=== PATIENT | female | born 1970 | race Caucasian/White ===

== ENCOUNTER 2018-11-26 08:29 | Emergency (ER) | payer MEDICAID ==
[~2018-11-26] VITALS: Ht 157.5 cm; Wt 96.6 kg
[2018-11-26 08:37] VITALS: Ht 157.5 cm; Wt 96.6 kg
[2018-11-26 11:11] VITALS: BP 139/75
== END 2018-11-26 11:17 | disposition home or self-care (01) ==
LOC: ED 08:29
DX: G44.209 Tension-type headache, unspecified, not intractable (principal)
CPT/HCPCS: J0780; J1885; J7030; J8597; Q0162